=== PATIENT | female | born 1985 | race Caucasian/White ===

== ENCOUNTER 2023-10-29 08:08 | Outpatient (OUT) | payer OTHER, SELFPAY ==
--- NOTE | 2023-10-29 | US_ITS ---
[address] [address] Patient Name: WARD TROY MRN: [id number] date: 1985 Sex: F Assigned Patient Location: US Current Patient Location: US Accession/Order Number: [id number] Exam Date: 10/29/2023 08:16 Report Date: 10/29/2023 10:40 At the request of: CORY HUERTAS Procedure: US pelvis w/ transvaginal EXAM: Pelvic ultrasound HISTORY: . PCOS E28.2 . COMPARISON: None. TECHNIQUE: FINDINGS: Scanning of the pelvis demonstrates uterus to be anteverted and measures 8.9 x 6 x 5.1 cm. Myometrium is heterogeneous in its echotexture. Within the myometrium of the uterus posteriorly there is a 1.2 x 0.7 cm hypoechoic solid area and a approximately 1 cm hypoechoic area consistent with small uterine fibroids. Right ovary measures 4.3 x 2.2 x 2.1 cm. Color-flow is noted. Resistive indexes 0.43. Small follicles are noted. Left ovary measures 3.3 x 2.7 x 2.2 cm. Color-flow is noted. Resistive indexes 0.43. There are a few follicles noted. Minimal fluid is noted in the cul-de-sac. Endometrial complex measures 11 mm. US/US pelvis w/ transvaginal IMPRESSION: 1. 2 small fibroids within the myometrium of the uterus. 2. Normal endometrial complex. 3. Normal-appearing ovaries. 4. Minimal fluid in the cul-de-sac. This could be physiologic. Electronically authenticated by: WOODY ROSAS Date: 10/29/2023 10:40
== END 2023-10-29 08:09 | disposition home or self-care (01) ==
LOC: US 08:08
PROVIDERS: PCP Family Medicine; Visit Provider Obstetrics & Gynecology
DX: E28.2 Polycystic ovarian syndrome (principal); D25.9 Leiomyoma of uterus, unspecified
CPT/HCPCS: 76830; 76856

== ENCOUNTER 2023-11-07 06:55 | Day surgery (SDC) | payer OTHER, SELFPAY ==
--- OUTSIDE RECORDS SUMMARY | 2023-11-07 06:59 | XMS_ITS | CCD ---
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 Comment: <20 ng/mL Vit D deficient 20 - <30 ng/mL Vit D insufficient 30 - 100 ng/mL Vit D sufficient >100 ng/mL Potential Toxicity Performed By: #### V ITAD #### [facility] [address] [place], [place] [address] Dr. Padma Howard Encounters Encounter Date Encounter Type Care Provider Facility Start: 10-25-2023 End: 10-25-2023 ambulatory CORY HUERTAS Not Available Start: 11-16-2022 ambulatory UNKNOWN PROVIDER Facili ty:[facility] Start: [address] LIDIA SIMMONS . Facili ty:[facility] Start: 10-29-[address] LIDIA SIMMONS . Facili ty:[facility] Start: 10-25-2022 End: 10-26-[address] LIDIA SIMMONS . Facility: Start: 09-30-2022 End: 10-01-[address] LIDIA SIMMONS . Facility:[facility] Start: 09-07-2022 End: 09-11-2022 ambulatory UNKNOWN PROVIDER Facility:[facility] Start: 09-02-2022 End: 09-03-[address] LIDIA SIMMONS . Facility: Start: 08-12-2022 Letter encounter Darlyn Ball Work Phone: [facility] Start: 07-20-2022 ambulatory UNKNOWN PROVIDER Facili ty:[facility] Start: 06-16-2022 End: 06-16-2022 ambulatory SETH TODD . Facility:[facility] Start: 04-28-2022 [facility]ulatory [facility] Start: 03-10-2022 ambulatory UNKNOWN PROVIDER [facility] Start: 01-20-2022 End: 01-25-2022 ambulatory UNKNOWN PROVIDER [facility] Start: 12-26-2021 End: 12-27-[address] LIDIA SIMMONS . Facility: Plan of Treatment Date Care Activity Detail Author Start: 2036 Shingles (RZV) Vaccine (1 of 2) Shingles (RZV) Vaccine (1 of 2) [facility] Start: 02-03-2028 Tetanus vaccination Tet[facility]Td or Tdap) [facility] Start: 09-07-2022 End: 09-07-2022 Telemedicine consultation with patient 09/07/2022 Telemedicine Behavioral Health Dangelo Poe, [employer] [address] [place] [address] [facility] Start: 03-27-2022 Influenza vaccination Influenza Vaccine (#1) [facility] Start: 11-11-2007 Screening for malignant neoplasm of cervix [facility] Start: 2004 Hepatitis C screening [facility]atitis [facility]ody [facility] Start: 2001 HIV screening HIV Test [facility] Start: 05-13-1987 COVID-19 Vaccine (#1) COVID-19 Vaccine (#1) [facility] Start: 1986 Screening for malignant neoplasm of breast Mammography shared decision making (35 through 39 years) [facility] Immunizations Immunization Date Immunization Notes Care Provider Fa cility 02-02-2018 tetanus toxoid, redu david diphtheria toxoid, and acellular pertussis vaccine, adsorbed Darlyn Ball Work Phone: [facility] Payers Date Payer Category Payer Unknown [facility] [id number] 2020-Present [phone] [address] [place] [address] [id number] 2020 Unknown [id number] 1986 Unknown [id number] [id number] 1986 Unknown [id number] [id number] 1986 Unknown [id number] [id number]3 1986 Unknown [id number] 2.16.840.1.899783.3.579.2.593 1986 Unknown [id number] 2.16.840.1.924401.3.579.2.593 1986 Unknown [id number] 2.16.840.1.736684.3.579.2.593 1986 Unknown [id number] 2.16.840.1.541495.3.579.2.593 1986 Unknown [id number] [id number] 1986 Unknown [id number] [id number] 1986 Unknown [id number] [id number] 1986 Unknown [id number] 2.16.840.1.376078.3.579.2.732 1986 Unknown [id number] 2.16.840.1.521707.3.579.2.732 1986 Unknown [id number] [id number] 9 Social History Date Type Detail Facility Tobacco smoking stat [facility] Tobacco smoking consumption unknown [facility] Start: 1985 Sex Assigned At Not on file [facility] Clinical Note 09-07-2022 Note Date & Type Note Facility 09-07-2022 Note Patient and clinicia n met on 09/07/2022 to develop goals, objectives and interventions related to treatment in Psychiatry Medication Management. Treatment plan is on file in the patient's chart in a secured location. PIERCE Gonzales 09/07/2022 [facility] 09-03-2022 Note Date & Type Note Facility 09-03-2022 Note PROCEDURE: XR FOOT L T MIN 3 VIEWS HISTORY: Pain in left foot , acute COMPARISON: None. FINDINGS: BONES:No fracture, acute abnormality, or significant arthropathy. SOFT TISSUES:No visible soft tissue swelling. EFFUSION:None visible. OTHER: Negative. IMPRESSION: 1. No acute bone abnormality or significant degenerative joint disease. Electronically authenticated by: RADHA MARTINEZ Date: 2022-09-03 07:15 [facility] Clinical Note 06-22-2022 Note Date & Type Note Facility 06-22-2022 Note S-attempted to outre ach clt x2 for TH appt B-Hx of Severe alcohol use disorder A-Left VM, no answer x2. Clt aware of next appt with provider, Timi Poe 07/20/22 at 1pm TH R- left vm for clt to call RR [facility] [employer] [facility] Summary Purpose Family History No Family History Records FoundNo Family History Records FoundNo Family History Records Found Advance Directives No Advanced Directives Records FoundNo Advanced Directives Records FoundNo Advanced Directives Records Found Additional Source Comments Care Teams (unrecognized sec tion and content) Business Practices Supervisor Relationship Specialty Start Date End Date Darlyn Ball [address] [facility] [place] [address] Resident Psychiatry 02/27/21 Dangelo Poe APRN-CNP [address] [place] [address] [place] [address] NETWORK CONTROL OPERATOR Psychiatry 08/29/21 Cynthia Mckinney LSW [address] [place] [address] Individual Behavioral Health Therapist Social Work 07/22/22 INFORMATION SOURCE (unrecogn ized section and content) DATE CREATED AUTHOR 11/11/2022 [facility] DATE CREATED AUTHOR AUTHOR'S ORGANIZ ATION 01/11/2023 [facility] DATE CREATED AUTHOR AUTHOR'S ORGANIZ ATION 10/26/2023 [facility] FOR RECORDS PERTAINING TO PATIENTS WHO ARE OR HAVE BEEN ENROLLED IN A CHEMICAL DEPENDENCY/SUBSTANCEABUSE PROGRAM, SOME INFORMATION MAY BE OMITTED. This clinical summary was aggregated from multiple sources. Caution should be exercised in using it in the provision of clinical care. This summary normalizes information from multiple sources, and as a consequence, information in this document may materially change the coding, format and clinical context of patient data. In addition, data may be omitted in some cases. CLINICAL DECISIONS SHOULD BE BASED ON THE PRIMARY CLINICAL RECORDS. [facility] [employer] provides no warranty or guarantee of the accuracy or completeness of information in this document.
--- NOTE | 2023-11-07 07:16 | FL_ITS ---
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 TECHNIQUE: Informed consent was obtained. A sterile vaginal speculum was introduced and, following cleansing of the cervix, a balloon-tipped catheter was inserted into the endometrial cavity. The procedure was then completed in the usual manner with water-soluble contrast. Standard level fluoroscopic mode of operation utilized. FINDINGS: FALLOPIAN TUBES: Patent fallopian tubes bilaterally. ENDOMETRIAL CAVITY: No scarring, filling defects, or dilatation. OTHER: Negative. FL/FL hysterosalpingography IMPRESSION: Normal exam Electronically authenticated by: WOODY PARRA Date: 11/07/2023 08:55
--- NOTE | 2023-11-07 07:16 | FL_ITS ---
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 TECHNIQUE: Informed consent was obtained. A sterile vaginal speculum was introduced and, following cleansing of the cervix, a balloon-tipped catheter was inserted into the endometrial cavity. The procedure was then completed in the usual manner with water-soluble contrast. Standard level fluoroscopic mode of operation utilized. FINDINGS: FALLOPIAN TUBES: Patent fallopian tubes bilaterally. ENDOMETRIAL CAVITY: No scarring, filling defects, or dilatation. OTHER: Negative. FL/FL Hysterosal cath placement IMPRESSION: Normal exam Electronically authenticated by: WOODY PARRA Date: 11/07/2023 08:55
[2023-11-07 07:30] VITALS: BMI 28.3
[2023-11-07 07:40] LABS: HCG Quantitative <1 mIU/mL
--- NOTE | 2023-11-07 09:21 | SUR.PREOP ---
11/03/23 Pt instructed on procedure, date, time, and prep.
--- NOTE | 2023-11-07 09:31 | PC.NURSE ---
0828 After procedure pt c/o mild cramping but not heavy bleeding and feeling good.
== END 2023-11-07 08:30 | disposition home or self-care (01) ==
LOC: LAB 06:55
PROVIDERS: Radiology Diagnostic Radiology; PCP Family Medicine; Visit Provider Obstetrics & Gynecology
DX: N83.9 Noninflammatory disorder of ovary, fallopian tube and broad ligament, unspecified (principal)
CPT/HCPCS: 36415; 58340; 74740; 84702; Q9966

== ENCOUNTER 2023-11-21 21:28 | Outpatient (OUT) | payer OTHER, SELFPAY ==
[2023-11-21 09:15] LABS: Basophils Percent Auto 0.4 % (0.2-2.0); Eosinophils Absolute Auto 0.3 10^3/uL (0.0-0.7); Eosinophils Percent Auto 4.7 % (0.9-7.0); Hemoglobin 13.9 g/dL (12.0-16.0); Immature Granulocytes Abs Auto 0.01 10^3/uL (0.00-0.03); Immature Granulocytes Pct Auto 0.1 % (0.0-0.5); Lymphocytes Percent Auto 27.8 % (20.5-60.0); Mean Corpuscular HGB Conc 33.1 g/dL (29.9-35.2); Mean Corpuscular Hemoglobin 30.3 pg (26.7-34.0); Mean Corpuscular Volume 91.5 fL (81.0-99.0); Mean Platelet Volume 9.3 fL (9.5-13.5); Monocytes Absolute Auto 0.5 10^3/uL (0.3-0.8); Monocytes Percent Auto 7.6 % (1.7-12.0); Neutrophils Absolute Auto 4.2 10^3/uL (1.4-6.5); Neutrophils Percent Auto 59.4 % (43.0-75.0); Platelet Count 287 10^3/uL (150-450); Red Blood Count 4.59 10^6/uL (4.20-5.40); Red Cell Distribution Width 12.5 % (11.0-15.0); White Blood Count 7.1 10^3/uL (4.0-11.0)
[2023-11-21 09:21] LABS: Estimated Average Glucose 94 mg/dL; Glycohemoglobin A1C 4.9 % (4.5-6.2)
[2023-11-21 09:29] LABS: HCG Quantitative <1 mIU/mL
[2023-11-21 09:30] LABS: Thyroid Stimulating Hormone 2.234 uIU/mL (0.358-3.740)
[2023-11-21 14:51] LABS: Free T4 0.79 ng/dL (0.76-1.46)
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
[2023-11-23 04:07] LABS: FSH 7.7 mIU/mL (.); Luteinizing Hormone(LH) 10.9 mIU/mL (.)
== END 2023-11-21 21:29 | disposition home or self-care (01) ==
LOC: LAB 21:28
PROVIDERS: PCP Family Medicine; Visit Provider Obstetrics & Gynecology
DX: E28.2 Polycystic ovarian syndrome (principal); E34.9 Endocrine disorder, unspecified
CPT/HCPCS: 36415; 82626; 82627; 83001; 83002; 83036; 84439; 84443; 84702; 85025

== ENCOUNTER 2023-12-22 15:09 | Outpatient (OUT) | payer OTHER, SELFPAY | END 2023-12-22 15:10 | disposition home or self-care (01) | LOC: LAB 15:09 | PROVIDERS: PCP Family Medicine; Visit Provider Obstetrics & Gynecology | DX: N97.0 Female infertility associated with anovulation (principal) | CPT/HCPCS: 36415; 84144 ==

== ENCOUNTER 2024-01-21 12:03 | Outpatient (OUT) | payer OTHER, SELFPAY ==
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
[2024-01-23 11:09] LABS: Progesterone 13.9 ng/mL (.)
== END 2024-01-21 12:04 | disposition home or self-care (01) ==
LOC: LAB 12:03
PROVIDERS: PCP Family Medicine; Visit Provider Obstetrics & Gynecology
DX: N97.0 Female infertility associated with anovulation (principal); E28.2 Polycystic ovarian syndrome
CPT/HCPCS: 36415; 84144

== ENCOUNTER 2024-03-21 13:34 | Outpatient (OUT) | payer OTHER, SELFPAY ==
--- OUTSIDE RECORDS SUMMARY | 2024-03-21 13:38 | XMS_ITS | CCD ---
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 [employer] Psychiatry 08/29/21 Cynthia Mckinney LSW [address] [place] [address] Individual Behavioral Health Therapist Social Work 07/22/22 INFORMATION SOURCE (unrecogn ized section and content) DATE CREATED AUTHOR 11/11/2022 [facility] DATE CREATED AUTHOR AUTHOR'S ORGANIZ ATION 01/11/2023 [facility] DATE CREATED AUTHOR AUTHOR'S ORGANIZ ATION 10/26/2023 [facility] FOR RECORDS PERTAINING TO PATIENTS WHO ARE [...] BE BASED ON THE PRIMARY CLINICAL RECORDS. [facility]. provides no warranty or guarantee of the accuracy or completeness of information in this document.
== END 2024-03-21 13:35 | disposition home or self-care (01) ==
LOC: LAB 13:34
PROVIDERS: PCP Family Medicine; Visit Provider Obstetrics & Gynecology
DX: N97.0 Female infertility associated with anovulation (principal); E28.2 Polycystic ovarian syndrome
CPT/HCPCS: 36415; 84144

== ENCOUNTER 2024-03-29 14:20 | Outpatient (OUT) | payer OTHER, SELFPAY ==
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
[2024-03-29 15:36] LABS: HCG Quantitative <1 mIU/mL
== END 2024-03-29 14:21 | disposition home or self-care (01) ==
LOC: LAB 14:20
PROVIDERS: PCP Family Medicine; Visit Provider Obstetrics & Gynecology
DX: E28.2 Polycystic ovarian syndrome (principal); N97.0 Female infertility associated with anovulation
CPT/HCPCS: 36415; 84702

== ENCOUNTER 2024-04-11 12:20 | Outpatient (OUT) | payer OTHER, SELFPAY ==
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
--- NOTE | 2024-04-11 12:29 | XR_ITS ---
The [address] [address] Patient Name: WARD TROY MRN: [id number] date: 1985 Sex: F Assigned Patient Location: LAB Current Patient Location: LAB Accession/Order Number: [id number] Exam Date: 04/11/2024 12:33 Report Date: 04/11/2024 17:38 At the request of: LIDIA SIMMONS Procedure: XR chest 2V EXAM: XR chest 2V HISTORY: Acute bronchitis COMPARISON: 06/16/2022 TECHNIQUE: Upright PA and lateral chest x-ray FINDINGS: The heart is not enlarged and the vasculature is not distended. No acute infiltrate, effusion or pneumothorax is identified. The osseous structures are grossly intact. XR/XR chest 2V IMPRESSION: No acute infiltrate or evidence of cardiac decompensation. The overall appearance of the chest is essentially unchanged. Electronically authenticated by: TERRY MCGRATH Date: 04/11/2024 17:38
== END 2024-04-11 12:21 | disposition home or self-care (01) ==
LOC: LAB 12:22
PROVIDERS: PCP Family Medicine; Visit Provider Family Medicine
DX: J20.9 Acute bronchitis, unspecified (principal)
CPT/HCPCS: 71046

== ENCOUNTER 2024-05-18 10:23 | Outpatient (OUT) | payer OTHER, SELFPAY ==
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
[2024-05-19 04:07] LABS: Progesterone 18.4 ng/mL (.)
== END 2024-05-18 10:24 | disposition home or self-care (01) ==
LOC: LAB 10:24
PROVIDERS: PCP Family Medicine; Visit Provider Obstetrics & Gynecology
DX: N97.0 Female infertility associated with anovulation (principal); E28.2 Polycystic ovarian syndrome
CPT/HCPCS: 36415; 84144